=== PATIENT | male | born 1965 | race Caucasian/White ===

== ENCOUNTER 2017-03-12 22:17 | Emergency (ER) | payer MEDICAID ==
[~2017-03-12] VITALS: Ht 172.7 cm; Wt 96.5 kg
[~2017-03-12 22:17] MED LIST: AMOXICILLIN; IBUPROFEN
[2017-03-12 22:40] VITALS: Ht 172.7 cm; Wt 96.5 kg
[2017-03-13] MEDS ORDERED: TETRACAINE 0.5% 4 ML OPH BOTH EYES SCH (02:00)
[2017-03-13] MEDS ORDERED: FLUORESCEIN STRIP BOTH EYES ONE (02:00)
[2017-03-13] MEDS ORDERED: IBUP-1542 PO (02:36)
[2017-03-13] MEDS ORDERED: CPR3OO3.5 BOTH EYES (02:36)
[2017-03-13 03:18] VITALS: BP 129/89; PULSE 56; RESP 16; TEMP 97.6
--- NOTE | 2017-03-13 05:42 | ERD ---
ER Documentation Chief Complaint Date/Time DATE: 03/13/17 TIME: 05:40 Chief Complaint left eye pain and redness since Friday s/p cutting concrete HPI This patient is a 51-year-old male presenting to the emergency department with complaints of bilateral eye redness after cutting concrete 4 days ago. Symptoms are worse in the left eye. Symptoms are worse with blinking. He states he feels there is a "metal chip" in his left eye. He has had similar symptoms in the past. He also reports pus drainage from his left eye. He denies vision changes. He does not wear glasses or contacts. He denies fevers , chills, or other symptoms. ROS All systems reviewed and are negative except as per history of present illness. Medications Home Meds Active Scripts Ibuprofen* (Motrin*) 600 Mg Tab, 600 MG PO Q6, #30 TAB Prov:THOMAS WILHELM PA-C 03/13/17 Ciprofloxacin Opht* (Ciloxan*) 0.3%-3.5 Opht Oint, 1 APPLIC BOTH EYES TID for 7 Days, #1 BOTTLE Prov:THOMAS WILHELM PA-C 03/13/17 Reported Medications Amoxicillin 04/15/10 Ibuprofen 04/15/10 Allergies Allergies: Coded Allergies: No Known Drug Allergies (Verified Allergy, Mild, 04/15/10) PMhx/Soc History of Surgery: No Anesthesia Reaction: No Hx Neurological Disorder: No Hx Respiratory Disorders: No Hx Cardiac Disorders: No Hx Psychiatric Problems: No Hx Miscellaneous Medical Probl: No Hx Alcohol Use: No Hx Substance Use: No Hx Tobacco Use: No Smoking Status: Never smoker Physical Exam Vitals Vital Signs Date Time Temp Pulse Resp B/P Pulse Ox O2 Delivery O2 Flow Rate FiO2 03/13/17 03:18 97.6 56 16 129/89 99 Room Air 03/12/17 22:40 98.5 58 18 130/85 Physical Exam Const: Nontoxic, well-appearing male in no acute distress. Head: Atraumatic Eyes: Bilateral conjunctival injection with discharge noted to the left eye. EOMs intact bilaterally. There is no periorbital edema or erythema noted. ENT: Normal External Ears, Nose and Mouth. Neck: Full range of motion..~ No meningismus. Resp: Clear to auscultation bilaterally Cardio: Regular rate and rhythm, no murmurs Abd: Soft, non tender, non distended. Normal bowel sounds Skin: No petechiae or rashes Back: No midline or flank tenderness Ext: No cyanosis, or edema Neur: Awake and alert Psych: Normal Mood and Affect Results 24 hrs Current Medications Medications (Trade) Dose Ordered Sig/David Route PRN Reason Start Time Stop Time Status Last Admin Dose Admin Tetracaine HCl (Tetracaine 0.5% Steri-Unit Katarina) 1 drop ONCE BOTH EYES 03/13/17 02:00 03/13/17 03:20 DC Fluorescein Sodium (Afoqy-B-Dkrag) 1 strip ONCE ONCE BOTH EYES 03/13/17 02:00 03/13/17 02:01 DC Procedures/MDM 51-year-old male presents to the emergency department with complaints of possible foreign body in left eye. On Ibarra lamp exam there is no definite foreign body noted. The patient should have further follow-up with the [facility] and his primary care physician. He will be treated as an outpatient with a prescription for ciprofloxacin ophthalmic drops. He agrees with the discharge plan of diagnosis. Questions and concerns were addressed. No significant visual acuity deficits noted in the emergency department. Strict ER return precautions were discussed. Eye Exam w/ Wood's lamp: Visual Acuity: Right eye: 20/30, left eye: 20/20, both eyes: 20/20 Visual Malone: Intact in all four quadrants bilaterally Lac ducts/glands: No swelling Lids w/ evertion: Normal, no foreign body Conj/Regina: Clear, negative Fluorescein/Akbar's Anterior Chamber: Possible corneal abrasion identified in the left eye. Retina exam: No obvious abnormality Departure Diagnosis: Primary Impression: Corneal abrasion Additional Impression: Conjunctivitis Condition: Fair Patient Instructions: Conjunctivitis Caused by Infection, Corneal Abrasion Ref[facility]: [facility] Usted se dudley hecho un examen mdico de control que le indica que no est en cara condicin que requiera tratamiento urgente en el Departamento de Emergencia. Un estudio ms profundo y el tratamiento de chan condicin pueden esperar sin ningn riesgo hasta que usted sea atendida/o en el consultorio de chan mdico o cara cl demetrius. Es responsabilidad suya arreglar cara anjelica para el seguimiento del will. MANEJO DE CONDICIONES NO URGENTES EN EL FUTURO 1) Si usted tiene un mdico de atencin primaria: Usted debera llamar a chan mdico de atencin primaria antes de venir al departamento de emergencia. Despus de las horas de consultorio, chan doctor o chan asociado/a est disponible por telfono. El mdico o enfermero de vero en el servicio telefnico puede asesorarle por lukas medio para atender el problema, o will contrario se puede programar cara anjelica. 2) Si usted no tiene un mdico de atencin primaria: Llame al mdico o clnica de referencia que aparece abajo viridiana las horas de consultorio para hacer cara anjelica para que le vean. CLINICAS: [facility] [phone] [facility] [phone] [facility] [phone] [facility] [phone] [facility] [place] [phone] [address] [facility] [phone] [address] [facility] Hours: Mon - Fri 9:00 AM - 5:00 PM Additional Instructions: Make an appointment with [facility] tomorrow. Follow up with your PCP within the next 1-3 days for a repeat evaluation. If you require a referral to a specialist, your Primary Care Provider may be able to provide this for you. In most patient cases, a referral is not required. If you have further questions regarding this matter, please ask your Primary Care Provider. Return the the emergency department immediately if symptoms worsen or change. If you have any questions regarding medications, ask your pharmacist or us before you leave. If any adverse reactions, occur while taking your medications, discontinue the treatment and return to the emergency department immediately. If any new or worsening symptoms, uncontrolled fevers, or other unexplained symptoms occur, return to the emergency department immediately. Take your medications as directed, and complete the entire course of treatment. THOMAS WILHELM PA-C Mar 13, 2017 05:41
== END 2017-03-13 03:19 | disposition home or self-care (01) ==
LOC: FTE 22:17
DX: S05.02XA Injury of conjunctiva and corneal abrasion without foreign body, left eye, initial encounter (principal); H10.9 Unspecified conjunctivitis; X58.XXXA Exposure to other specified factors, initial encounter; Y92.9 Unspecified place or not applicable
CPT/HCPCS: Z7610 ×2; 99283

== ENCOUNTER 2017-09-14 09:56 | Emergency (ER) | END 2017-09-14 11:44 | disposition home or self-care (01) ==

== ENCOUNTER 2018-09-22 09:35 | Emergency (ER) | payer MEDICAID ==
[~2018-09-22] VITALS: Ht 175.3 cm; Wt 100.1 kg
[~2018-09-22 09:35] MED LIST changes: +AZIT250T PO; +CETI10CA PO; +CPR3OO3.5 BOTH EYES; +HYDR-4011 PO; +IBUP-1542 PO; +PRED20TA PO
[2018-09-22 09:44] VITALS: Ht 175.3 cm; Wt 100.1 kg
[2018-09-22] MEDS ORDERED: SOD CHLORIDE 0.9% 500 ML IV STA (10:14)
[2018-09-22] MEDS ORDERED: KETOROLAC 15 MG INJ IV STA (10:14)
[2018-09-22] MEDS ORDERED: IBUP800T48 PO (12:22)
--- NOTE | 2018-09-22 12:30 | ERD ---
ER Documentation Chief Complaint Chief Complaint LOWER ABD PAIN RADIATIG TO BACK HPI During the patient's encounter translation services were utilized Language: Argentine Source: In person 53-year-old gentleman no past medical history presents with several days of generalized abdominal discomfort with occasional right-sided flank pain. This pain is generally sharp, 5 out of 10. He denies any dysuria urgency or frequency, no hematuria. Occasionally he has reflux symptoms in the epigastrium consistent with burning. No chest pain or pressure. ROS All systems reviewed and are negative except as per history of present illness. Medications Home Meds Active Scripts Ibuprofen* (Motrin*) 800 Mg Tab, 800 MG PO Q6H PRN for PAIN AND OR ELEVATED TEMP, #30 TAB Prov:BIANCA ESPINOSA MD 09/22/18 Discontinued Reported Medications Amoxicillin 04/15/10 Ibuprofen 04/15/10 Discontinued Scripts Hydrocodone/Acetaminophen (Cypress 5-325 Tablet) 1 Each Tablet, 1 TAB PO Q6H PRN for PAIN, #12 TAB Prov:WILLAM DOMINGUEZ MD 09/14/17 Cetirizine Hcl* (Zyrtec*) 10 Mg Capsule, 10 MG PO DAILY, #10 TAB.CHEW Prov:WILLAM DOMINGUEZ MD 09/14/17 Prednisone* (Prednisone*) 20 Mg Tab, 40 MG PO DAILY for 4 Days, TAB Prov:WILLAM DOMINGUEZ MD 09/14/17 Azithromycin* (Zithromax*) 250 Mg Tablet, 250 MG PO .ZPACK DIRECTED, #6 TAB TAKE 500 MG (2 TABS) THE FIRST DAY THEN 250 MG (1 TAB) DAYS 2-5 Prov:WILLAM DOMINGUEZ MD 09/14/17 Ibuprofen* (Motrin*) 600 Mg Tab, 600 MG PO Q6, #30 TAB Prov:THOMAS WILHELM PA-C 03/13/17 Ciprofloxacin Opht* (Ciloxan*) 0.3%-3.5 Opht Oint, 1 APPLIC BOTH EYES TID for 7 Days, #1 BOTTLE Prov:THOMAS WILHELM PA-C 03/13/17 Allergies Allergies: Coded Allergies: No Known Drug Allergies (Verified Allergy, Mild, 04/15/10) PMhx/Soc History of Surgery: No Anesthesia Reaction: No Hx Neurological Disorder: No Hx Respiratory Disorders: No Hx Cardiac Disorders: No Hx Psychiatric Problems: No Hx Miscellaneous Medical Probl: No Hx Alcohol Use: No Hx Substance Use: No Hx Tobacco Use: No FmHx Family History: No diabetes Physical Exam Vitals Vital Signs Date Temp Pulse Resp B/P (MAP) Pulse Ox O2 O2 Flow FiO2 Time Delivery Rate 09/22/18 65 17 122/86 100 Room Air 10:43 (98) 09/22/18 98.1 86 18 129/80 96 09:44 (96) Physical Exam General: Well developed, well nourished, no acute distress Head: Normocephalic, atraumatic. Eyes: Pupils equally reactive, EOM intact ENT: Moist mucous membranes Neck: Supple, no lymphadenopathy Respiratory: Lungs clear bilaterally, no distress Cardiovascular: RRR, no murmurs, rubs, or gallops Abdominal: Soft, non-tender, non-distended, no peritoneal signs Back: No CVA tenderness : Deferred MSK: No edema, no unilateral swelling, 5/5 strength Neurologic: Alert and oriented, moving all extremities, normal speech, no focal weakness, no cerebellar signs Skin: No rash Psych: Normal mood Result Diagram: 09/22/18 1037 09/22/18 1037 Results 24 hrs Laboratory Tests Test 09/22/18 10:37 09/22/18 10:38 White Blood Count 6.3 10^3/ul Red Blood Count 5.65 10^6/ul Hemoglobin 16.8 g/dl Hematocrit 48.4 % Mean Corpuscular Volume 85.7 fl Mean Corpuscular Hemoglobin 29.7 pg Mean Corpuscular Hemoglobin Concent 34.7 g/dl Red Cell Distribution Width 12.0 % Platelet Count 214 10^3/UL Mean Platelet Volume 9.3 fl Immature Granulocytes % 0.300 % Neutrophils % 71.9 % Lymphocytes % 17.5 % Monocytes % 8.6 % Eosinophils % 1.4 % Basophils % 0.3 % Nucleated Red Blood Cells % 0.0 /100WBC Immature Granulocytes # 0.020 10^3/ul Neutrophils # 4.5 10^3/ul Lymphocytes # 1.1 10^3/ul Monocytes # 0.5 10^3/ul Eosinophils # 0.1 10^3/ul Basophils # 0.0 10^3/ul Nucleated Red Blood Cells # 0.0 10^3/ul Sodium Level 142 mmol/L Potassium Level 3.7 mmol/L Chloride Level 104 mmol/L Carbon Dioxide Level 25 mmol/L Anion Gap 13 Blood Urea Nitrogen 13 mg/dl Creatinine 0.76 mg/dl Est Glomerular Filtrat Rate mL/min > 60 mL/min Glucose Level 114 mg/dl Calcium Level 8.9 mg/dl Total Bilirubin 0.4 mg/dl Direct Bilirubin 0.00 mg/dl Indirect Bilirubin 0.4 mg/dl Aspartate Amino Transf (AST/SGOT) 43 IU/L Alanine Aminotransferase (ALT/SGPT) 56 IU/L Alkaline Phosphatase 86 IU/L Total Protein 7.4 g/dl Albumin 4.2 g/dl Globulin 3.20 g/dl Albumin/Globulin Ratio 1.31 Lipase 51 U/L Urine Color YELLOW Urine Clarity CLEAR Urine pH 5.0 Urine Specific Pomeroy 1.015 Urine Ketones NEGATIVE mg/dL Urine Nitrite NEGATIVE mg/dL Urine Bilirubin NEGATIVE mg/dL Urine Urobilinogen NEGATIVE mg/dL Urine Leukocyte Esterase NEGATIVE Dixon/ul Urine Hemoglobin NEGATIVE mg/dL Urine Glucose NEGATIVE mg/dL Urine Total Protein NEGATIVE mg/dl Current Medications Medications Dose Sig/David Start Time Status Last (Trade) Ordered Route PRN Stop Time Admin Dose Reason Admin Sodium 500 ml @ Q1H STAT 09/22/18 DC 09/22/18 Chloride 500 mls/hr IV 10:14 10:40 09/22/18 11:13 Ketorolac 15 mg ONCE STAT 09/22/18 DC 09/22/18 Tromethamine IV 10:14 10:41 (Toradol) 09/22/18 10:15 Procedures/MDM EKG, MONITORS, & DIAGNOSTIC IMAGING: CT a/p IMPRESSION: 1. No acute inflammatory process, mass, adenopathy. 2. No renal calculi or obstructive uropathy. 3. Normal appendix and terminal ileum. 4. Fatty change of the liver. 5. Tiny right inguinal hernia containing fat. 6. Grade 1 anterior listhesis of L4 on L5 with secondary facet arthropathy RP LAB INTERPRETATION: * No evidence of infection or hepatobiliary obstruction * Urinalysis is unremarkable MEDICAL DECISION MAKING: Patient presents with abdominal pain and flank pain of unclear etiology, consider ureterolithiasis given the patient's flank pain. However muscular skeletal etiology is also possible. Patient describes reflux type symptoms. I do not believe his presentation is consistent with cardiopulmonary process or aortic process. ER COURSE: * Laboratory testing and CT imaging are unrevealing at this time. * The patient's symptoms are improved * At this point I feel the patient can be safely discharged. He was advised of return precautions if nonsteroidal anti-inflammatories and Pepcid do not work. He may need to see a GI physician for possible endoscopy and colonoscopy. CONSULTATION: [None] DISPOSITION PLAN: The patient does not have an identifiable emergent medical condition that warrants inpatient hospitalization at this time. The patient is deemed safe for discharge with outpatient follow-up. We discussed follow up with the patient's primary care doctor within 24 to 48 h ours as needed. We also discussed return to the emergency room for worsening symptoms or worsening condition. Outpatient referral: [None required] Discharge Medications: Motrin, OTC Pepcid Departure Diagnosis: Primary Impression: Abdominal pain Abdominal location: generalized Qualified Codes: R10.84 - Generalized abdominal pain Additional Impression: Right flank pain Condition: Stable Patient Instructions: Abdominal Pain, Flank Pain, Uncertain Cause Referrals: [facility] Usted se dudley hecho un examen mdico de control que le indica que no est en cara condicin que requiera tratamiento urgente en el Departamento de Emergencia. Un estudio ms profundo y el tratamiento de chan condicin pueden esperar sin ningn riesgo hasta que usted sea atendida/o en el consultorio de chan mdico o cara clnica. Es responsabilidad suya arreglar cara deb para el seguimiento del will. MANEJO DE CONDICIONES NO URGENTES EN EL FUTURO 1) Si usted tiene un mdico de atencin primaria: Usted debera llamar a chan mdico de atencin primaria antes de venir al departamento de emergencia. Despus de las horas de consultorio, chan doctor o chan asociado/a est disponible por telfono. El mdico o enfermero de vero en el servicio telefnico puede asesorarle por lukas medio para atender el problema, o will contrario se puede programar cara deb. 2) Si usted no tiene un mdico de atencin primaria: Llame al mdico o clnica de referencia que aparece abajo viridiana las horas de consultorio para hacer cara deb para que le vean. CLINICAS: [facility] [phone] [facility] [phone] [facility] [phone] [place] [address] [phone] [place] [phone] [facility] [phone] [facility] () Usted se dudley hecho un examen mdico de control que le indica que no est en cara condicin que requiera tratamiento urgente en el Departamento de Emergencia. Un estudio ms profundo y el tratamiento de chan condicin pueden esperar sin ningn riesgo hasta que usted sea atendida/o en el consultorio de chan mdico o cara clnica. Es responsabilidad suya arreglar cara deb para el seguimiento del will. MANEJO DE CONDICIONES NO URGENTES EN EL FUTURO 1) Si usted tiene un mdico de atencin primaria: Usted debera llamar a chan mdico de atencin primaria antes de venir al departam ento de emergencia. Despus de las horas de consultorio, chan doctor o chan asociado/a est disponible por telfono. El mdico o enfermero de vero en el servicio telefnico puede asesorarle por lukas medio para atender el problema, o will contrario se puede programar cara deb. 2) Si usted no tiene un mdico de atencin primaria: Llame al mdico o condado institucions de referencia que aparece abajo viridiana las horas de consultorio para hacer cara deb para que le vean. SI USTED NO PUEDE PAGAR PARA DON UN MEDICO puede ir a: [facility] [phone] [place] [address] [facility] [address] [place] [address] [facility] [address] [place] [address] [facility]A [facility] [address] [place] [address] Additional Instructions: Llame al doctor nombrado abajo (Referral Sources) MAANA y love cara DEB PARA DENTRO DE CARA SEMANA. Dgale a la secretaria que nosotros le instruimos hacer esta deb.Avise o llame si chan condicin se empeora antes de la deb. BIANCA ESPINOSA MD Sep 22, 2018 12:30
[2018-09-22 12:45] VITALS: BP 124/66; PULSE 63; RESP 18
== END 2018-09-22 13:38 | disposition home or self-care (01) ==
LOC: E/R 09:35
DX: R10.84 Generalized abdominal pain (principal)
CPT/HCPCS: 36415; 74176; 80053; 81003; 83690; 85025; 96361; 96374; J1885; J7040; Z7502